=== PATIENT | male | born 1960 ===

== ENCOUNTER 2018-07-10 21:59 | Emergency (ER) | payer OTHER ==
[2018-07-10 22:09] VITALS: TEMP 98.2
[2018-07-10 23:53] LABS: BASO % 0.7 % (0.0-2.0); EOS # 0.1 K/uL (0.0-0.7); EOS % 1.1 % (0.0-4.0); HEMOGLOBIN 15.4 g/dL (12.0-18.0); LYMPH % 35.3 % (20.0-40.0); MEAN CELL VOLUME 93.4 fl (80.0-94.0); MEAN CORPUSCULAR HEMOGLOBIN 31.8 pg (27.0-31.0); MEAN PLATELET VOLUME 7.6 fl (7.2-11.7); MONO # 0.3 K/uL (0.0-0.8); MONO % 5.8 % (0.0-10.0); NEUT # 3.3 K/uL (1.8-7.0); NEUT % 57.1 % (50.0-75.0); RBC 4.86 Mil/uL (4.40-5.90); RED CELL DISTRIBUTION WIDTH 13.8 % (11.5-14.5); WHITE BLOOD COUNT 5.7 K/uL (4.8-10.8)
[2018-07-11 00:02] LABS: BLOOD UREA NITROGEN 19 mg/dl (9-20); CALCIUM 9.7 mg/dL (8.4-10.2); GFR NON-AFRICAN AMERICAN > 60
[2018-07-11] MEDS ORDERED: Iohexol 300 100 ML IJ ONE (00:05)
[2018-07-11] MEDS ORDERED: Sodium Chloride 0.9% 50 ML IV ONE (00:05)
--- NOTE | 2018-07-11 01:14 | ED PDOC ---
HPI: Psych/Substance Abuse Time Seen by Provider: 07/10/18 23:06 Chief Complaint (Nursing): Headache Chief Complaint (Provider): Headache History Per: Patient History/Exam Limitations: no limitations Current Symptoms Are (Timing): Still Present Suicide/Self Injury Attempted (Context): None Additional Complaint(s): 57 year old with a history of HIV and arthritis presents to the ED with neck pain and a headache for 4 days. Patient reports that pain is located at the back of the neck and worsens with movement, food and when he lies down. It radiates to occipital region of head and upper back. Patient also reports that he has cervical disc herniation and complains of shoulder pain from a surgery months ago that is unrelated to current chief complaint. He is compliant with his medications and has a normal CD4. Denies throat pain, dysphagia, fever, weakness, numbness, tingling and recent injury. PMD: Dr. Brie Rosales Past Medical History Reviewed: Historical Data, Nursing Documentation, Vital Signs Vital Signs: Last Vital Signs Temp 98.2 F 07/10/18 22:05 Pulse 64 07/10/18 22:05 Resp 18 07/10/18 22:05 BP 176/84 H 07/10/18 22:05 Pulse Ox 99 07/10/18 22:05 - Medical History PMH: Colonic Polyps, Gall Bladder Disease, HIV, Peripheral Edema (only if on feet too long), Pneumonia (1995) Denies: Chronic Kidney Disease - Surgical History Surgical History: Cholecystectomy - Family History Family History: States: Unknown Family Hx - Home Medications Home Medications: Ambulatory Orders Medication Instructions Recorded Efavirenz/Emtricitabine/Teno 1 tab PO DAILY 12/03/14 [Atripla 600 MG-200 MG-300 MG] Fenofibrate [Tricor] 145 mg PO HS 12/03/14 Benzonatate [Tessalon Perles] 200 mg PO TID PRN #6 sgl 12/04/14 Naproxen [Naprosyn Tab] 500 mg PO Q12 PRN #20 tab 12/04/14 Sulfamethoxazole/Trimethoprim 1 tab PO Q12 #14 tab 12/04/14 [Bactrim DS 800 mg-160 mg] Aspirin [Ecotrin] 81 mg PO DAILY 11/16/15 Efavirenz/Emtricitabine/Teno 1 tab PO DAILY 04/11/16 [Atripla 600 MG-200 MG-300 MG] Ergocalciferol (Vitamin D2) 1 tab PO QWK 11/16/15 [Vitamin D2] Ibuprofen [Motrin] 600 mg PO BID PRN 11/16/15 [id number] Ethyl Esters [OMEGA 3] 500 mg PO DAILY 11/16/15 Cyclobenzaprine [Cyclobenzaprine 10 mg PO TID PRN #15 tab 07/11/18 HCl] Naproxen 500 mg PO BID #20 tab 07/11/18 - Allergies Allergies/Adverse Reactions: Allergies Allergy/AdvReac Type Severity Reaction Status Date / Time No Known Allergies Allergy Verified 07/10/18 22:05 Review of Systems ROS Statement: Except As Marked, All Systems Reviewed And Found Negative Constitutional: Negative for: Weakness ENT: Negative for: Throat Pain Musculoskeletal: Positive for: Neck Pain (back of neck), Back Pain (neck pain radiates to upper back ) Neurological: Positive for: Headache. Negative for: Weakness, Numbness, Incoordination Physical Exam - Reviewed Nursing Documentation Reviewed: Yes Vital Signs Reviewed: Yes - Physical Exam Appears: Positive for: Non-toxic, No Acute Distress Head Exam: Positive for: ATRAUMATIC, NORMAL INSPECTION, NORMOCEPHALIC Skin: Positive for: Normal Color, Warm, Dry Eye Exam: Positive for: EOMI, Normal appearance, PERRL Neck: Positive for: Normal, Painless ROM, Supple Cardiovascular/Chest: Positive for: Regular Rate, Rhythm. Negative for: Murmur Respiratory: Positive for: Normal Breath Sounds Gastrointestinal/Abdominal: Positive for: Normal Exam, Soft. Negative for: Tenderness Back: Positive for: Normal Inspection Extremity: Positive for: Normal ROM (x 4). Negative for: Deformity Neurologic/Psych: Positive for: Alert, Oriented. Negative for: Motor/Sensory Deficits - Laboratory Results Result Diagrams: 07/10/18 23:50 07/10/18 23:50 - ECG O2 Sat by Pulse Oximetry: 99 (RA) Pulse Ox Interpretation: Normal - Progress Re-evaluation Time: 02:56 Condition: Re-examined, Improved Medical Decision Making Medical Decision Makin:34 Impression: Neck pain could be related to cervical disc herniation or DJD; Less likely to be related to pain in shoulder. R/o mass and abscess Initial Plan: --Head CT --Neck Soft tissue CT --C-spine CT --Flexeril 10 mg PO --Toradol 30 mg IM --ESR --BMP --CBC 00:[address] COMMENTS: There is normal configuration of sella turcica. There are no intra or extra- axial collections. There is no mass effect or midline shift. There is no evidence of hematoma formation. No hydrocephalus is present. The ventricles are symmetrical. No abnormal calcifications are present. There is diffuse age-appropriate cerebellar and cerebral atrophy with proportionally dilated ventricles and cortical sulci. There are bilateral periventricular and subcortical white matter hypolucencies compatible with mild chronic microvascular disease. Otherwise, no significant focal abnormalities are seen either in the posterior fossa or supratentorial compartment. IMPRESSION: 1. Age-appropriate cerebellar and cerebral atrophy. 2. Mild chronic microvascular disease. 3. No evidence of acute intracranial pathology. 00:[address] Findings: There are diffuse spondylotic changes. Findings are demonstrated by disc space narrowing, osteophyte formation and degenerative endplate changes. Facet joint arthropathy is noted. No fracture or dislocation is seen. No aggressive bone lesion is noted. Multilevel degenerative disc disease from C4-C7 levels. Impression: Spondylosis. Multilevel facet joint arthropathy. No acute bone pathology. 01:13 CT Neck Soft Tissue FINDINGS: Normal bilateral parotid glands. Normal bilateral machine tender spaces. Normal bilateral parapharyngeal spaces. Normal bilateral carotid spaces. Normal bilateral sublingual and submandibular glands. Normal visualized nasopharynx. Normal retropharyngeal space. Normal perivertebral space. Normal visualized bilateral faucial tonsils. The visualized tongue, tongue base and oropharynx are normal. The visualized cervical lymph nodes (levels I-) are within normal size limits, and maintain normal morphology. There is no demonstrated solid or cystic mass lesion. There is no abnormal contrast enhancement. Normal epiglottis, bilateral vallecula and hypopharynx. The pre-epiglottic and paraglottic adipose spaces are normal. Normal visualized bilateral piriform sinuses, aryepiglottic folds, vocal cords, and arytenoid-cricoid articulations. Normal subglottic trachea. Normal bilateral lobes of the thyroid gland. Normal visualized pulmonary apices. Normal visualized paranasal sinuses. Spondylosis. IMPRESSION: No CT evidence of acute pathology. Scribe Attestation: Documented by Kailey Joya acting as a scribe for Jose Hollis MD Provider Scribe Attestation: All medical record entries made by the Scribe were at my direction and personally dictated by me. I have reviewed the chart and agree that the record accurately reflects my personal performance of the history, physical exam, medical decision making, and the department course for this patient. I have also personally directed, reviewed, and agree with the discharge instructions and disposition. Disposition - Clinical Impression Clinical Impression: Neck pain, DJD (degenerative joint disease), cervical - Patient ED Disposition Is Patient to be Admitted: No Doctor Will See Patient In The: Office Counseled Patient/Family Regarding: Studies Performed, Diagnosis, Need For F ollowup - Disposition Referrals: [facility] [Outside] Disposition: Routine/Home Disposition Time: 03:04 Condition: GOOD Additional Instructions: IVAN PENA, thank you for letting us take care of you today. Your provider was Jose Hollis MD and you were treated for HEAD/NECK PAIN. The emergency medical care you received today was directed at your acute symptoms. If you were prescribed any medication, please fill it and take as directed. It may take several days for your symptoms to resolve. Return to the Emergency Department if your symptoms worsen, do not improve, or if you have any other problems. Please contact your doctor or call one of the physicians/clinics you have been referred to that are listed on the Patient Visit Information form that is included in your discharge packet. Bring any paperwork you were given at discharge with you along with any medications you are taking to your follow up visit. Our treatment cannot replace ongoing medical care by a primary care provider outside of the emergency department. Thank you for allowing the [facility] team to be part of your care today. If you had an X-Ray or CT scan: A Radiologist will review the ED reading if any change in treatment is needed we will contact you. If you had a blood, urine, or wound culture: It will take several days for the results, if any change in treatment is needed we will contact you. If you had an STI test: It will take 48 hours for the results. Please call after 1 week if you have not heard back. Prescriptions: Cyclobenzaprine [Cyclobenzaprine HCl] 10 mg PO TID PRN #15 tab PRN Reason: Muscle Spasm Naproxen 500 mg PO BID #20 tab Instructions: Degenerative Disc Disease, Neck Pain
[2018-07-11 03:23] VITALS: BP 127/69; PULSE 57; RESP 16; O2SAT 98
--- NOTE | 2018-07-11 08:20 | CT ---
Date of service: 07/10/2018 PROCEDURE: CT HEAD WITHOUT CONTRAST. HISTORY: headache COMPARISON: None available. TECHNIQUE: Axial computed tomography images were obtained through the head/brain without intravenous contrast. Radiation dose: Total exam DLP = 856.85 mGy-cm. This CT exam was performed using one or more of the following dose reduction techniques: Automated exposure control, adjustment of the mA and/or kV according to patient size, and/or use of iterative reconstruction technique. FINDINGS: HEMORRHAGE: No intracranial hemorrhage. BRAIN: No mass effect or edema. Mild cerebral atrophy is present. Supratentorial subcortical and deep white matter and few periventricular small high white matter hypodensities are noted consistent with microvascular disease. Incidentally noted are bilateral basal ganglion calcifications VENTRICLES: Unremarkable. No hydrocephalus. CALVARIUM: Unremarkable. PARANASAL SINUSES: Unremarkable as visualized. No significant inflammatory changes. MASTOID AIR CELLS: Trace right mastoid effusion (axial series 3, image 12) OTHER FINDINGS: None. IMPRESSION: No intracranial hemorrhage or mass effect. Microvascular ischemic changes as above no significant appearing mass effect or edema associated with these findings. Trace right mastoid effusion. This was not the initially mention on the preliminary [facility] report
--- NOTE | 2018-07-11 10:40 | CT ---
Date of service: 07/10/2018 PROCEDURE: CT Cervical Spine without contrast HISTORY: neck pain COMPARISON: None available. TECHNIQUE: Axial computed tomography images were obtained of the cervical spine without the use of intravenous contrast. Coronal and sagittal reformatted images were created and reviewed. Radiation dose: Total exam DLP = 405.92 mGy-cm. This CT exam was performed using one or more of the following dose reduction techniques: Automated exposure control, adjustment of the mA and/or kV according to patient size, and/or use of iterative reconstruction technique. FINDINGS: VERTEBRAE: There is normal alignment of the cervical vertebral bodies. There is normal cervical lordosis. Vertebral height is normal. Bone mineralization is normal. There is no acute fracture or traumatic anterior listhesis. The craniocervical junction is normal. The atlantoaxial joint normal. DISCS/SPINAL CANAL/NEURAL FORAMINA: No significant central canal or neural foraminal stenosis. Discs heights are grossly preserved. There is mild multilevel facet arthropathy. PARASPINAL SOFT TISSUES: The paraspinous soft tissues are normal. OTHER FINDINGS: No apical pneumothorax. No prevertebral soft tissue thickening. IMPRESSION: No acute fracture or traumatic anterior listhesis. A preliminary report was provided by [employer]
--- NOTE | 2018-07-11 11:06 | CT ---
Date of service: 07/11/2018 PROCEDURE: CT NECK WITH CONTRAST HISTORY: Neck pain COMPARISON: None available. TECHNIQUE: CT of the neck with intravenous contrast. Coronal and sagittal reformats generated. Intravenous contrast dose: 90 mL Omnipaque 300 Radiation dose: Total exam DLP = 433.25 mGy-cm. This CT exam was performed using one or more of the following dose reduction techniques: Automated exposure control, adjustment of the mA and/or kV according to patient size, and/or use of iterative reconstruction technique. FINDINGS: NASOPHARYNX: Within normal limits. SUPRAHYOID NECK: No mass or abnormal enhancement oropharynx, oral cavity, parapharyngeal space and retropharyngeal space. INFRAHYOID NECK: No mass or abnormal enhancement larynx, hypopharynx, and supraglottic space. Vocal cords intact. MASS: None. GLANDS: Parotid and submandibular glands unremarkable. Normal size thyroid gland, without nodule. LYMPH NODES: Normal. No lymphadenopathy. CERVICAL SPINE: No fracture or focal lesion. VASCULAR STRUCTURES: There is normal intravascular enhancement. OTHER FINDINGS: None. IMPRESSION: No acute findings. A preliminary report was provided by [email or web address].
[2018-07-11] MEDS ORDERED: Albuterol 0.042% Inhal Sol (1.25 mg/3 mL) UD ONE (13:07)
== END 2018-07-11 03:23 | disposition home or self-care (01) ==
LOC: H.ER 21:59
DX: M54.2 Cervicalgia (principal); M47.9 Spondylosis, unspecified; Z21 Asymptomatic human immunodeficiency virus [HIV] infection status; Z79.82 Long term (current) use of aspirin
CPT/HCPCS: 70450; 70491; 72125; 80048; 85025; 85651; 96374; 99284; J1885; Q9967